=== PATIENT | male | born 1960 | race African-American/Black ===

== ENCOUNTER 2022-03-31 11:33 | Inpatient (IN) | payer OTHER ==
[~2022-03-31] VITALS: Ht 167.6 cm; Wt 101.4 kg
[2022-03-31] MEDS ORDERED: ASPIRIN 81 MG CHEW TAB PO ONE (12:00)
[2022-03-31 12:07] LABS: BASOPHILS % 0.3 % (0.0-1.0); EOSINOPHILS # (AUTO) 0.1 (0.0-0.4); EOSINOPHILS % 1.8 % (0.0-6.0); HEMATOCRIT 40.9 % (38.2-49.6); HEMOGLOBIN 12.3 g/dL (14.0-18.0); LYMPHOCYTES # (AUTO) 0.5 (1.0-3.2); LYMPHOCYTES % 6.2 % (18.0-39.1); MEAN CORPUSCULAR HEMOGLOBIN 30.8 pg (28-32); MEAN CORPUSCULAR HGB CONC 30.1 g/dL (31-35); MEAN CORPUSCULAR VOLUME 102.3 fL (81-99); MONOCYTES # (AUTO) 1.1 (0.2-0.8); MONOCYTES % 13.2 % (4.4-11.3); NEUTROPHILS # (AUTO) 6.2 (2.1-6.9); NEUTROPHILS % 77.6 % (38.7-80.0); PLATELET COUNT 177 x10e3/uL (140-360); RED CELL DISTRIBUTION WIDTH 12.8 % (11.7-14.4)
[2022-03-31] MEDS ORDERED: METHYLPREDNISOLONE SOD SUCC 125 MG/2ML VIAL IV STA (12:22)
[2022-03-31 12:26] LABS: ALBUMIN 3.2 g/dL (3.5-5.0); ALBUMIN/GLOBULIN RATIO 0.8 (0.8-2.0); ANION GAP 12.5 mmol/L (8-16); CALCIUM 8.5 mg/dL (8.4-10.2); CREATININE, SERUM 1.2 mg/dL (0.72-1.25); POTASSIUM 3.5 mmol/L (3.5-5.1)
[2022-03-31] MEDS ORDERED: FUROSEMIDE INJ 10 MG/ML 4 ML VIAL IV ONE (12:30)
[2022-03-31 12:33] LABS: CREATINE KINASE MB 12.5 ng/mL (0-5.0)
[2022-03-31] MEDS ORDERED: ONDANSETRON HCL INJ 2MG/ML 2ML 2 MG/ML VIAL IV PRN (13:00)
[2022-03-31 13:39] LABS: CLARITY,URINE CLEAR (CLEAR); COLOR,URINE YELLOW (YELLOW); LEUKOCYTE ESTERASE ,URINE NEGATIVE (NEGATIVE); NITRITE,URINE NEGATIVE (NEGATIVE); PROTEIN,URINE DIPSTICK NEGATIVE (NEGATIVE)
[2022-03-31 13:40] LABS: KETONES,URINE NEGATIVE (NEGATIVE); URINE UROBILINOGEN 0.2 mg/dL (0.2 - 1)
[2022-03-31 13:43] LABS: BACTERIA,URINE RARE /HPF; EPITHELIAL CELLS,URINE FEW /LPF; MUCUS,URINE FEW (RARE); RBC,URINE 0-5 /HPF (0-5); WBC,URINE (MAN) 0-5 /HPF (0-5)
[2022-03-31] MEDS ORDERED: LOSARTAN POTASSIUM 25 MG TAB PO SCH (14:00)
[2022-03-31 17:13] VITALS: BP 154/96
[2022-03-31] MEDS: CARVEDILOL 3.125 MG TAB PO SCH (18:13)
[2022-03-31] MEDS: FUROSEMIDE INJ 10 MG/ML 2 ML VIAL IV SCH (18:13)
[2022-03-31] MEDS: NITROGLYCERIN 2% OINT 1 GM PKT TOP SCH ×2 (18:14→23:59)
[2022-03-31 18:45] VITALS: BP 155/102
[2022-03-31 19:46] LABS: CREATINE KINASE MB 12.1 ng/mL (0-5.0)
[2022-03-31 20:00] VITALS: BP 137/96
[2022-03-31] MEDS: HEPARIN SOD (PORCINE) 5,000 UNIT/ML VIAL SC SCH (21:20)
[2022-03-31 22:00] VITALS: BP 137/96
[2022-04-01] VITALS (8 sets, daily range): BP systolic 116–146; BP diastolic 69–98
[2022-04-01 01:49] LABS: CREATINE KINASE MB 8.5 ng/mL (0-5.0)
[2022-04-01 05:54] LABS: BASOPHILS % 0.1 % (0.0-1.0); HEMATOCRIT 38.8 % (38.2-49.6); HEMOGLOBIN 12.7 g/dL (14.0-18.0); LYMPHOCYTES # (AUTO) 0.3 (1.0-3.2); LYMPHOCYTES % 3.4 % (18.0-39.1); MEAN CORPUSCULAR HEMOGLOBIN 30.9 pg (28-32); MEAN CORPUSCULAR HGB CONC 32.7 g/dL (31-35); MEAN CORPUSCULAR VOLUME 94.4 fL (81-99); MONOCYTES # (AUTO) 0.5 (0.2-0.8); MONOCYTES % 5.4 % (4.4-11.3); NEUTROPHILS # (AUTO) 8.4 (2.1-6.9); NEUTROPHILS % 90.5 % (38.7-80.0); PLATELET COUNT 200 x10e3/uL (140-360); RED BLOOD COUNT 4.11 x10e6/uL (4.3-5.7)
[2022-04-01] MEDS: NITROGLYCERIN 2% OINT 1 GM PKT TOP SCH (06:06)
[2022-04-01 06:19] LABS: ALBUMIN/GLOBULIN RATIO 0.7 (0.8-2.0); ANION GAP 14.5 mmol/L (8-16); CALCIUM 8.8 mg/dL (8.4-10.2); CHOL/HDL RATIO 1.7 (3.9-4.7); CREATININE, SERUM 1.39 mg/dL (0.72-1.25); POTASSIUM 4.5 mmol/L (3.5-5.1)
[2022-04-01 06:47] LABS: MAGNESIUM 1.8 MG/DL (1.3-2.1); PHOSPHORUS 4.8 MG/DL (2.3-4.7)
[2022-04-01 06:58] LABS: CREATINE KINASE MB 6.9 ng/mL (0-5.0)
[2022-04-01] MEDS ORDERED: NITROGLYCERIN 0.2 MG/HR PATCH TOP SCH (09:00)
[2022-04-01] MEDS ORDERED: LOSARTAN POTASSIUM 25 MG TAB PO SCH (09:00)
[2022-04-01] MEDS: CARVEDILOL 3.125 MG TAB PO SCH (10:10)
[2022-04-01] MEDS: PREDNISONE 20 MG TAB PO SCH (10:10)
[2022-04-01] MEDS: FUROSEMIDE INJ 10 MG/ML 2 ML VIAL IV SCH ×2 (10:11→16:24)
[2022-04-01] MEDS: HEPARIN SOD (PORCINE) 5,000 UNIT/ML VIAL SC SCH ×2 (10:15→22:04)
[2022-04-01] MEDS: LOSARTAN POTASSIUM 25 MG TAB PO SCH (16:25)
[2022-04-01] MEDS: CARVEDILOL 12.5 MG TAB PO SCH (16:26)
[2022-04-02] VITALS (8 sets, daily range): BP systolic 101–121; BP diastolic 73–86
[2022-04-02 05:32] LABS: BASOPHILS % 0.1 % (0.0-1.0); EOSINOPHILS % 0.4 % (0.0-6.0); HEMATOCRIT 40.5 % (38.2-49.6); HEMOGLOBIN 12.3 g/dL (14.0-18.0); LYMPHOCYTES # (AUTO) 0.7 (1.0-3.2); LYMPHOCYTES % 6.6 % (18.0-39.1); MEAN CORPUSCULAR HGB CONC 30.4 g/dL (31-35); MONOCYTES # (AUTO) 1.2 (0.2-0.8); MONOCYTES % 11.3 % (4.4-11.3); NEUTROPHILS # (AUTO) 8.4 (2.1-6.9); NEUTROPHILS % 80.9 % (38.7-80.0); PLATELET COUNT 190 x10e3/uL (140-360); RED BLOOD COUNT 3.97 x10e6/uL (4.3-5.7); RED CELL DISTRIBUTION WIDTH 12.6 % (11.7-14.4)
[2022-04-02 05:49] LABS: ANION GAP 12.2 mmol/L (8-16); CALCIUM 8.4 mg/dL (8.4-10.2); CREATININE, SERUM 1.37 mg/dL (0.72-1.25); POTASSIUM 4.2 mmol/L (3.5-5.1)
[2022-04-02 06:13] LABS: CHOL/HDL RATIO 1.9 (3.9-4.7)
[2022-04-02] MEDS: CARVEDILOL 12.5 MG TAB PO SCH ×2 (09:06→17:08)
[2022-04-02] MEDS: HEPARIN SOD (PORCINE) 5,000 UNIT/ML VIAL SC SCH ×2 (09:06→22:00)
[2022-04-02] MEDS: PREDNISONE 20 MG TAB PO SCH (09:06)
[2022-04-02] MEDS: FUROSEMIDE INJ 10 MG/ML 2 ML VIAL IV SCH (09:06)
[2022-04-02] MEDS: LOSARTAN POTASSIUM 25 MG TAB PO SCH ×2 (09:07→17:10)
[2022-04-02] MEDS ORDERED: ALBUTEROL/IPRATROPIUM 3 ML NEB NEB PRN (12:15)
[2022-04-02] MEDS: BENZONATATE 100 MG CAP PO SCH ×2 (15:04→23:26)
[2022-04-03] VITALS (8 sets, daily range): BP systolic 92–142; BP diastolic 57–93
[2022-04-03 05:08] LABS: INR 1.06; PARTIAL THROMBOPLASTIN TIME 29.9 seconds (23.8-35.5)
[2022-04-03] MEDS: CARVEDILOL 12.5 MG TAB PO SCH ×2 (08:51→17:25)
[2022-04-03] MEDS: LOSARTAN POTASSIUM 25 MG TAB PO SCH ×2 (08:54→17:25)
[2022-04-03] MEDS: BENZONATATE 100 MG CAP PO SCH ×3 (08:55→19:42)
[2022-04-03] MEDS: FUROSEMIDE 40 MG TAB PO SCH (08:55)
[2022-04-03] MEDS: PREDNISONE 20 MG TAB PO SCH (08:55)
[2022-04-03] MEDS: HEPARIN SOD (PORCINE) 5,000 UNIT/ML VIAL SC SCH (08:56)
[2022-04-03] MEDS ORDERED: GENTAMICIN SULFATE 40 MG/ML 2 ML VIAL ONE (10:52)
[2022-04-03] MEDS ORDERED: LIDOCAINE HCL 2% LOCAL 20 ML VIAL ONE (10:52)
[2022-04-03] MEDS ORDERED: LIDOCAINE HCL/EPINEPHRINE/PF 10 ML VIAL ONE ×3 (10:52→13:06)
[2022-04-03] MEDS ORDERED: Vancomycin IV 1 GM VIAL ONE (10:52)
[2022-04-03] MEDS ORDERED: SODIUM CHLORIDE 0.9% 250ML 250 ML ONE (10:53)
[2022-04-03] MEDS ORDERED: SODIUM CHLORIDE 0.9% 1000ML 3,000 ML ONE (10:53)
[2022-04-03] MEDS ORDERED: FUROSEMIDE INJ 10 MG/ML 4 ML VIAL IV ONE (11:00)
[2022-04-03] MEDS ORDERED: MIDAZOLAM HCL 2 MG/2 ML VIAL ONE (12:41)
[2022-04-03] MEDS ORDERED: FENTANYL CITRATE/PF 100MCG/2 ML INJ ONE (12:42)
[2022-04-04] VITALS (7 sets, daily range): BP systolic 114–144; BP diastolic 57–103
[2022-04-04 06:40] LABS: BASOPHILS % 0.2 % (0.0-1.0); EOSINOPHILS # (AUTO) 0.1 (0.0-0.4); EOSINOPHILS % 2.4 % (0.0-6.0); HEMATOCRIT 44.4 % (38.2-49.6); HEMOGLOBIN 14.2 g/dL (14.0-18.0); LYMPHOCYTES # (AUTO) 0.4 (1.0-3.2); LYMPHOCYTES % 7.2 % (18.0-39.1); MEAN CORPUSCULAR HEMOGLOBIN 30.8 pg (28-32); MEAN CORPUSCULAR VOLUME 96.3 fL (81-99); MONOCYTES # (AUTO) 1.2 (0.2-0.8); MONOCYTES % 21.3 % (4.4-11.3); NEUTROPHILS # (AUTO) 3.7 (2.1-6.9); NEUTROPHILS % 68.2 % (38.7-80.0); PLATELET COUNT 215 x10e3/uL (140-360); RED BLOOD COUNT 4.61 x10e6/uL (4.3-5.7); RED CELL DISTRIBUTION WIDTH 12.6 % (11.7-14.4)
[2022-04-04 07:06] LABS: CALCIUM 8.6 mg/dL (8.4-10.2); CREATININE, SERUM 1.26 mg/dL (0.72-1.25)
[2022-04-04] MEDS ORDERED: ACETAMINOPHEN 325 MG TAB PO PRN (09:15)
[2022-04-04] MEDS: LOSARTAN POTASSIUM 25 MG TAB PO SCH ×2 (09:27→16:43)
[2022-04-04] MEDS: FUROSEMIDE 40 MG TAB PO SCH (09:28)
[2022-04-04] MEDS: CARVEDILOL 12.5 MG TAB PO SCH ×2 (09:29→16:43)
[2022-04-04] MEDS: BENZONATATE 100 MG CAP PO SCH ×3 (09:29→21:55)
[2022-04-04 13:08] LABS: EOSINOPHILS % (MANUAL) 2 % (0-7); LYMPHOCYTES % (MANUAL) 7 % (19-48); MONOCYTES % (MANUAL) 24 % (3.4-9.0); NEUTROPHILS % (MANUAL) 66 % (40-74); PLATELET ESTIMATE ADEQUATE; PLATELET MORPHOLOGY COMMENT NORMAL; RBC MORPHOLOGY COMMENT NORMAL
[2022-04-04] MEDS ORDERED: HYDROCODONE/APAP 5MG-325MG TAB PO PRN (13:45)
[2022-04-04] MEDS: ACETAMINOPHEN/CODEINE 300MG - 30MG TAB PO PRN ×2 (14:47→21:57)
[2022-04-04] MEDS ORDERED: TEMAZEPAM 7.5 MG CAP PO PRN (20:15)
[2022-04-04] MEDS ORDERED: MELATONIN 3 MG TAB PO SCH (21:00)
[2022-04-05 04:00] VITALS: BP 117/82
[2022-04-05 08:00] VITALS: BP 152/101
[2022-04-05] MEDS: PREDNISONE 5 MG TAB PO SCH (09:00)
[2022-04-05] MEDS: FUROSEMIDE 40 MG TAB PO SCH (09:00)
[2022-04-05] MEDS: LOSARTAN POTASSIUM 25 MG TAB PO SCH ×2 (09:00→16:55)
[2022-04-05] MEDS: BENZONATATE 100 MG CAP PO SCH ×2 (09:00→15:00)
[2022-04-05] MEDS: CARVEDILOL 12.5 MG TAB PO SCH ×2 (09:00→16:55)
[2022-04-05] MEDS: MINOCYCLINE HCL 50 MG CAP PO SCH ×2 (09:00→16:55)
[2022-04-05] MEDS ORDERED: NALOXONE HCL INJ 0.4 MG/ML AMP IV ONE (11:00)
[2022-04-05] MEDS ORDERED: NALOXONE HCL INJ 0.4 MG/ML AMP IV PRN (11:15)
[2022-04-05 13:19] VITALS: BP 144/95
[2022-04-05 16:48] VITALS: BP 132/85
[2022-04-05 20:00] VITALS: BP 149/91
[2022-04-05] MEDS ORDERED: IOPAMIDOL 370 MG/ML 100 ML INFUS..BTL INJ ONE (20:58)
[2022-04-06] VITALS (7 sets, daily range): BP systolic 101–135; BP diastolic 74–88
[2022-04-06 05:44] LABS: BASOPHILS % 0.3 % (0.0-1.0); EOSINOPHILS # (AUTO) 0.1 (0.0-0.4); EOSINOPHILS % 1.3 % (0.0-6.0); HEMATOCRIT 44.4 % (38.2-49.6); HEMOGLOBIN 13.4 g/dL (14.0-18.0); LYMPHOCYTES # (AUTO) 0.4 (1.0-3.2); LYMPHOCYTES % 6.6 % (18.0-39.1); MEAN CORPUSCULAR HEMOGLOBIN 30.5 pg (28-32); MEAN CORPUSCULAR HGB CONC 30.2 g/dL (31-35); MEAN CORPUSCULAR VOLUME 100.9 fL (81-99); MONOCYTES # (AUTO) 1.3 (0.2-0.8); MONOCYTES % 21.4 % (4.4-11.3); NEUTROPHILS # (AUTO) 4.3 (2.1-6.9); NEUTROPHILS % 69.9 % (38.7-80.0); PLATELET COUNT 187 x10e3/uL (140-360)
[2022-04-06 06:35] LABS: ALBUMIN 2.8 g/dL (3.5-5.0); ALBUMIN/GLOBULIN RATIO 0.7 (0.8-2.0); ANION GAP 11.2 mmol/L (8-16); CALCIUM 8.5 mg/dL (8.4-10.2); CREATININE, SERUM 1.17 mg/dL (0.72-1.25); PHOSPHORUS 3.2 MG/DL (2.3-4.7); POTASSIUM 4.2 mmol/L (3.5-5.1)
[2022-04-06 08:04] LABS: EOSINOPHILS % (MANUAL) 1 % (0-7); LYMPHOCYTES % (MANUAL) 5 % (19-48); MONOCYTES % (MANUAL) 18 % (3.4-9.0); NEUTROPHILS % (MANUAL) 74 % (40-74)
[2022-04-06 08:06] LABS: PLATELET ESTIMATE ADEQUATE; PLATELET MORPHOLOGY COMMENT NORMAL; RBC MORPHOLOGY COMMENT NORMAL
[2022-04-06] MEDS: MINOCYCLINE HCL 50 MG CAP PO SCH ×2 (09:11→18:42)
[2022-04-06] MEDS: LOSARTAN POTASSIUM 25 MG TAB PO SCH ×2 (09:13→18:42)
[2022-04-06] MEDS: CARVEDILOL 12.5 MG TAB PO SCH ×2 (09:15→18:42)
[2022-04-06] MEDS: PREDNISONE 5 MG TAB PO SCH (09:15)
[2022-04-06] MEDS: FUROSEMIDE 40 MG TAB PO SCH (09:16)
[2022-04-06] MEDS ORDERED: DEXTROSE 50% SYRINGE 50 ML IV PRN (10:15)
[2022-04-06] MEDS ORDERED: METHYLPREDNISOLONE SOD SUCC 1,000 MG/8 ML VIAL IV ONE ×2 (10:15)
[2022-04-06] MEDS ORDERED: METHYLPREDNISOLONE SOD SUCC 1,000 MG in SODIUM CHLORIDE 0.9% 250ML 250 ML IV ONE (10:30)
[2022-04-06] MEDS: INSULIN LISPRO 100 UNIT/1 ML 3ML VIAL SQ SCH ×2 (11:30→19:04)
[2022-04-06] MEDS ORDERED: ONDANSETRON HCL 4 MG ORAL DISINTEGRATING TAB PO PRN (15:45)
[2022-04-07] VITALS (7 sets, daily range): BP systolic 108–129; BP diastolic 71–80
[2022-04-07] MEDS: LOSARTAN POTASSIUM 25 MG TAB PO SCH ×2 (09:37→17:39)
[2022-04-07] MEDS: FUROSEMIDE 40 MG TAB PO SCH (09:38)
[2022-04-07] MEDS: PREDNISONE 5 MG TAB PO SCH (09:38)
[2022-04-07] MEDS: MINOCYCLINE HCL 50 MG CAP PO SCH ×2 (09:38→17:40)
[2022-04-07] MEDS: CARVEDILOL 12.5 MG TAB PO SCH ×2 (09:38→17:39)
[2022-04-07] MEDS ORDERED: METHYLPREDNISOLONE SOD SUCC 1,000 MG/8 ML VIAL IV ONE (09:45)
[2022-04-07] MEDS: INSULIN LISPRO 100 UNIT/1 ML 3ML VIAL SQ SCH ×3 (09:45→18:04)
[2022-04-07] MEDS ORDERED: METHYLPREDNISOLONE SOD SUCC 1,000 MG in SODIUM CHLORIDE 0.9% 250ML 250 ML IV ONE (10:00)
[2022-04-08] VITALS (7 sets, daily range): BP systolic 112–124; BP diastolic 67–85
[2022-04-08 07:12] LABS: BASOPHILS % 0.1 % (0.0-1.0); HEMATOCRIT 42.8 % (38.2-49.6); HEMOGLOBIN 13.4 g/dL (14.0-18.0); LYMPHOCYTES # (AUTO) 0.2 (1.0-3.2); LYMPHOCYTES % 1.4 % (18.0-39.1); MEAN CORPUSCULAR HEMOGLOBIN 31.1 pg (28-32); MEAN CORPUSCULAR HGB CONC 31.3 g/dL (31-35); MEAN CORPUSCULAR VOLUME 99.3 fL (81-99); MONOCYTES # (AUTO) 0.5 (0.2-0.8); MONOCYTES % 2.9 % (4.4-11.3); NEUTROPHILS % 94.8 % (38.7-80.0); PLATELET COUNT 185 x10e3/uL (140-360); RED BLOOD COUNT 4.31 x10e6/uL (4.3-5.7); RED CELL DISTRIBUTION WIDTH 11.9 % (11.7-14.4)
[2022-04-08 07:43] LABS: ALBUMIN 2.8 g/dL (3.5-5.0); ALBUMIN/GLOBULIN RATIO 0.7 (0.8-2.0); ANION GAP 12.1 mmol/L (8-16); CALCIUM 8.5 mg/dL (8.4-10.2); CREATININE, SERUM 1.57 mg/dL (0.72-1.25); MAGNESIUM 2.7 MG/DL (1.3-2.1); PHOSPHORUS 3.6 MG/DL (2.3-4.7); POTASSIUM 4.1 mmol/L (3.5-5.1)
[2022-04-08] MEDS: INSULIN LISPRO 100 UNIT/1 ML 3ML VIAL SQ SCH ×3 (08:30→16:19)
[2022-04-08] MEDS ORDERED: SODIUM CHLORIDE 0.9% 1000ML 1,000 ML IV SCH (09:00)
[2022-04-08] MEDS ORDERED: METHYLPREDNISOLONE SOD SUCC 1,000 MG/8 ML VIAL IV ONE (10:15)
[2022-04-08] MEDS: LOSARTAN POTASSIUM 25 MG TAB PO SCH (10:30)
[2022-04-08] MEDS: MINOCYCLINE HCL 50 MG CAP PO SCH (10:30)
[2022-04-08] MEDS: CARVEDILOL 12.5 MG TAB PO SCH (10:30)
[2022-04-08] MEDS: FUROSEMIDE 40 MG TAB PO SCH (10:30)
[2022-04-08] MEDS ORDERED: METHYLPREDNISOLONE SOD SUCC 1,000 MG in SODIUM CHLORIDE 0.9% 250ML 250 ML IV ONE (11:00)
[2022-04-08] MEDS ORDERED: MINOCYCLINE HCL50 MG PO (11:47)
[2022-04-08] MEDS ORDERED: PREDNISONE20 MG PO (11:47)
[2022-04-08] MEDS ORDERED: ACETAMINOPHEN325 M1 PO (11:47)
[2022-04-08] MEDS ORDERED: COZAAR25 MG PO (11:47)
[2022-04-08] MEDS ORDERED: COREG12.5 MG PO (11:47)
[2022-04-08] MEDS ORDERED: FUROSEMIDE40 MG PO (11:47)
[2022-04-09] MEDS ORDERED: PREDNISONE 20 MG TAB PO SCH ×2 (09:00)
== END 2022-04-08 16:31 | disposition home or self-care (01) | DRG 226 ==
LOC: ER 11:43 → ERHOLD 13:00 → MED/SURG2 17:26
PROVIDERS: ADMIT Internal Medicine; ATTEND Internal Medicine
PROC: 0JH609Z Insertion of Cardiac Resynchronization Defibrillator Pulse Generator into Chest Subcutaneous Tissue and Fascia, Open Approach (ICD-10-PCS; principal; 2022-04-03)
PROC: 02HK3KZ Insertion of Defibrillator Lead into Right Ventricle, Percutaneous Approach (ICD-10-PCS; 2022-04-03)
PROC: 02H63KZ Insertion of Defibrillator Lead into Right Atrium, Percutaneous Approach (ICD-10-PCS; 2022-04-03)
DX: I13.0 Hypertensive heart and chronic kidney disease with heart failure and stage 1 through stage 4 chronic kidney disease, or unspecified chronic kidney disease (principal); I50.43 Acute on chronic combined systolic (congestive) and diastolic (congestive) heart failure; R47.01 Aphasia; T82.847A Pain due to cardiac prosthetic devices, implants and grafts, initial encounter; G93.49 Other encephalopathy; D86.9 Sarcoidosis, unspecified; Z91.199 Patient's noncompliance with other medical treatment and regimen due to unspecified reason; T42.4X5A Adverse effect of benzodiazepines, initial encounter; Z95.810 Presence of automatic (implantable) cardiac defibrillator; R59.0 Localized enlarged lymph nodes; R60.0 Localized edema; D86.89 Sarcoidosis of other sites; N18.31 Chronic kidney disease, stage 3a; G89.18 Other acute postprocedural pain; Z20.822 Contact with and (suspected) exposure to COVID-19; D86.85 Sarcoid myocarditis
CPT/HCPCS: 0223U; 33208; 36415; 70450; 70496; 70498; 71045; 71250; 74230; 80048; 80053; 80061; 81001; 82550; 82553; 82607; 82746; 82948; 83036; 83690; 83735; 83880; 83921; 84100; 84443; 84484; 85025; 85610; 85730; 93306; 94640; 94760; 94799; 95819; 99152; 99153; 99252; 99284; C1721; C1777; C1898; J1580; J1644; J1940; J2001; J2250; J2310; J2405; J2930; J3010; J3370; J7030; J7050; J7512; Q9967

== ENCOUNTER 2022-06-27 20:35 | Emergency (ER) | payer OTHER ==
[~2022-06-27] VITALS: Ht 167.6 cm; Wt 101.2 kg
[~2022-06-27 20:35] MED LIST: ACETAMINOPHEN325 M1 PO; COREG12.5 MG PO; COZAAR25 MG PO; FUROSEMIDE40 MG PO; MINOCYCLINE HCL50 MG PO; PREDNISONE20 MG PO
[2022-06-27] MEDS ORDERED: ASPIRIN 81 MG CHEW TAB PO ONE (21:00)
[2022-06-27] MEDS ORDERED: NITROGLYCERIN 0.4 MG SUBL SL ONE (21:00)
[2022-06-27 21:02] LABS: BASOPHILS % 0.3 % (0.0-1.0); EOSINOPHILS # (AUTO) 0.1 (0.0-0.4); EOSINOPHILS % 0.5 % (0.0-6.0); HEMATOCRIT 39.2 % (38.2-49.6); HEMOGLOBIN 12.9 g/dL (14.0-18.0); LYMPHOCYTES # (AUTO) 0.7 (1.0-3.2); LYMPHOCYTES % 6.3 % (18.0-39.1); MEAN CORPUSCULAR HEMOGLOBIN 31.7 pg (28-32); MEAN CORPUSCULAR HGB CONC 32.9 g/dL (31-35); MEAN CORPUSCULAR VOLUME 96.3 fL (81-99); MONOCYTES # (AUTO) 0.8 (0.2-0.8); MONOCYTES % 7.4 % (4.4-11.3); NEUTROPHILS # (AUTO) 9.5 (2.1-6.9); NEUTROPHILS % 83.6 % (38.7-80.0); PLATELET COUNT 239 x10e3/uL (140-360); RED BLOOD COUNT 4.07 x10e6/uL (4.3-5.7); RED CELL DISTRIBUTION WIDTH 13.2 % (11.7-14.4)
[2022-06-27 21:16] LABS: ALBUMIN 3.7 g/dL (3.5-5.0); ALBUMIN/GLOBULIN RATIO 0.9 (0.8-2.0); ANION GAP 16.2 mmol/L (8-16); CALCIUM 9.1 mg/dL (8.4-10.2); CREATININE, SERUM 2.08 mg/dL (0.72-1.25); POTASSIUM 4.2 mmol/L (3.5-5.1)
[2022-06-27 21:22] LABS: CREATINE KINASE MB 2.6 ng/mL (0-5.0)
[2022-06-27 22:36] VITALS: BP 113/87
== END 2022-06-27 22:37 | disposition left against medical advice (07) ==
LOC: ER 20:40
DX: R07.9 Chest pain, unspecified (principal); I10 Essential (primary) hypertension; I50.9 Heart failure, unspecified; I25.10 Atherosclerotic heart disease of native coronary artery without angina pectoris; J45.909 Unspecified asthma, uncomplicated; Z20.822 Contact with and (suspected) exposure to COVID-19; R94.31 Abnormal electrocardiogram [ECG] [EKG]; Z95.810 Presence of automatic (implantable) cardiac defibrillator
CPT/HCPCS: 36415; 71045; 80053; 82550; 82553; 83880; 84484; 85025; 93005; 99284; U0002